=== PATIENT | female | born 1960 | race Caucasian/White ===

== ENCOUNTER 2021-09-30 19:25 | Emergency (ER) | payer MEDICARE, OTHER ==
[~2021-09-30] VITALS: Ht 162.6 cm; Wt 83.9 kg
--- NOTE | 2021-09-30 19:57 | NUR ---
BIBDTR C/O CP PRESSURE ON AND OFF SINCE NOON, FEELING DIZZY, BLE PAIN. PT A/OX4. TOLERATING R/A WELL. CONNECTED PT TO POX AND MONITOR. SAFETY MEASURES IN PLACE.
--- NOTE | 2021-09-30 20:15 | NUR ---
LAC #20G S/L; PATENT AND INTACT. BLOOD COLLECTED AND SENT TO LAB
--- NOTE | 2021-09-30 20:17 | NUR ---
DR. LAW WARD AT PT'S BEDSIDE
--- NOTE | 2021-09-30 20:20 | NUR ---
BOTTOM PRESSER AT PT'S BEDSIDE
[2021-09-30 20:34] LABS: BASOPHILS # (AUTO) 0.1 K/uL (0.0-0.2); BASOPHILS % (AUTO) 1.3 % (0.0-2.0); EOSINOPHILS % (AUTO) 2.1 % (0.0-6.0); HEMATOCRIT 37 % (33-45); HEMOGLOBIN 11.8 g/dL (11.5-14.8); LYMPHOCYTES # (AUTO) 3.2 K/uL (0.8-4.8); MEAN CORPUSCULAR HGB CONC 32 g/dl (31.0-36.0); MEAN CORPUSCULAR VOLUME 79 fL (82-100); MONOCYTES % (AUTO) 8.9 % (2.0-12.0); NEUTROPHILS # (AUTO) 6.5 K/uL (1.8-8.9); NEUTROPHILS % (AUTO) 58.7 % (43.0-81.0); PLATELET COUNT (AUTO) 368 K/uL (150-450); WHITE BLOOD COUNT (AUTO) 11.1 K/uL (4.3-11.0)
[2021-09-30] MEDS ORDERED: IOHEXOL-350 100 ML VIAL IV ONE (20:45)
[2021-09-30] MEDS ORDERED: CT SWABBABLE VALVE TRANS SET 1 EA INFUS.SET MC ONE (20:45)
[2021-09-30] MEDS ORDERED: IV NS 0.9% 250 ML IV ONE (20:45)
[2021-09-30 20:49] LABS: CALCIUM, SERUM 9.2 mg/dL (8.5-10.1); CARBON DIOXIDE 31 mmol/L (21-32); CHLORIDE 104 mmol/L (98-107); GLUCOSE 106 mg/dL (74-106); POTASSIUM 3.7 mmol/L (3.5-5.1); SODIUM SERUM 138 mmol/L (136-145); UREA NITROGEN, BLOOD 25 mg/dL (7-18)
--- NOTE | 2021-09-30 20:57 | NUR ---
US TECH AT PT'S BEDSIDE
--- NOTE | 2021-09-30 21:22 | NUR ---
PT TAKEN TO CT VIA FACUNDO
[2021-09-30] MEDS ORDERED: IV NS 0.9% 500 ML IV ONE (22:30)
--- NOTE | 2021-09-30 22:32 | NUR ---
Written and verbal after care instructions given. Patient verbalizes understanding of instruction. Awaiting IVF to finish infusing for PT to be DC
--- NOTE | 2021-09-30 23:08 | NUR ---
Patient discharged to home in stable condition. Written and verbal after care instructions given. Patient verbalizes understanding of instruction. IV removed. Catheter intact and site benign. Pressure and 4x4 applied to site. No bleeding noted. PT ambulatory with a steady gait
[2021-09-30 23:26] VITALS: BP 154/91
== END 2021-09-30 23:26 | disposition home or self-care (01) ==
LOC: ER 19:44
DX: R55 Syncope and collapse (principal); R07.89 Other chest pain; Z86.718 Personal history of other venous thrombosis and embolism
CPT/HCPCS: 36415; 71045; 71275; 80048; 83880; 84484 ×2; 85025; 85378; 93005 ×2; 93970; 99285; J7040; J7050; Q9967

== ENCOUNTER 2023-03-17 18:51 | Emergency (ER) | payer MEDICARE, OTHER ==
[~2023-03-17] VITALS: Ht 160 cm; Wt 77.1 kg
[2023-03-17 19:49] LABS: BASOPHILS # (AUTO) 0.1 K/uL (0.0-0.2); BASOPHILS % (AUTO) 0.7 % (0.0-2.0); EOSINOPHILS # (AUTO) 0.2 K/uL (0.0-0.7); HEMATOCRIT 38 % (33-45); HEMOGLOBIN 11.9 g/dL (11.5-14.8); LYMPHOCYTES % (AUTO) 28.8 % (20.0-44.0); MEAN CORPUSCULAR HEMOGLOBIN 26 PG (26.0-33.0); MEAN CORPUSCULAR HGB CONC 32 g/dl (31.0-36.0); MEAN CORPUSCULAR VOLUME 82 fL (82-100); MONOCYTES % (AUTO) 9.9 % (2.0-12.0); NEUTROPHILS # (AUTO) 6.1 K/uL (1.8-8.9); NEUTROPHILS % (AUTO) 58.6 % (43.0-81.0); PLATELET COUNT (AUTO) 399 K/uL (150-450); RED BLOOD CELL COUNT(AUTO) 4.62 MIL/uL (4.0-5.2); RED CELL DISTRIBUTION WIDTH 14.6 % (11.5-15.0); WHITE BLOOD COUNT (AUTO) 10.4 K/uL (4.3-11.0)
[2023-03-17 20:30] LABS: CARBON DIOXIDE 28 mmol/L (21-32); CHLORIDE 100 mmol/L (98-107); CREATININE 1.1 mg/dL (0.6-1.3); GLUCOSE 100 mg/dL (74-106); NT-PRO BNP 303 pg/mL (0-125); SODIUM SERUM 134 mmol/L (136-145); UREA NITROGEN, BLOOD 21 mg/dL (7-18)
[2023-03-17 22:12] LABS: CALCIUM, SERUM 9.1 mg/dL (8.5-10.1)
[2023-03-18 01:45] VITALS: BP 136/78; TEMP 98; O2SAT 100
== END 2023-03-18 01:46 | disposition home or self-care (01) ==
LOC: ER 18:58
DX: R07.89 Other chest pain (principal); R20.0 Anesthesia of skin; I10 Essential (primary) hypertension
CPT/HCPCS: 36415; 70450-TC; 71045-TC; 80048-TC; 83880; 84484-TC; 85025-TC